=== PATIENT | female | born 1980 | race Caucasian/White ===

== ENCOUNTER 2022-04-09 11:56 | Emergency (ER) | payer SELFPAY ==
[~2022-04-09] VITALS: Ht 162.6 cm; Wt 109.0 kg
[2022-04-09 12:05] VITALS: BP 117/64
[2022-04-09] MEDS ORDERED: PROVENTIL HFA108 MCG IN (12:14)
[2022-04-09 12:31] VITALS: BP 121/58
[2022-04-09 13:08] LABS: HEMATOCRIT 30.9 % (37.0-47.0); IMMATURE GRANULOCYTES 0.2 % (0.0-5.0); MEAN CORPUSCULAR HGB 16.6 pG CALC (26.0-32.0); MEAN CORPUSCULAR HGB CONC 25.9 g/dL CAL (32.0-36.0); NEUT# 9.62 thou/uL (2.00-7.15); RED BLOOD COUNT 4.83 mill/uL (4.20-5.60); RED CELL DISTRI WIDTH 20.3 % (11.5-15.5)
[2022-04-09 13:19] LABS: ALBUMIN 3.7 g/dL (3.2-5.0); ALKALINE PHOSPHATASE 91 u/l (38-126); ANION GAP 12 (6-22 (CALC)); BILIRUBIN, TOTAL 0.3 mg/dL (0.0-1.4); BUN 15 mg/dL (7-17); BUN/CREATININE RATIO 19 (12-20 (CALC)); CARBON DIOXIDE 23 mmol/l (22-30); CHLORIDE 107 mmol/l (95-108); CREATININE 0.8 mg/dL (0.5-1.0); GFR FOR AFR.AMER. > 60 ML/MIN (>=60 (CALC)); GFR OTHER RACES > 60 ML/MIN (>=60 (CALC)); SGOT/AST 19 u/l (14-36); SODIUM 138 mmol/l (137-146); TOTAL PROTEIN 7.7 g/dL (6.3-8.2)
[2022-04-09 13:54] VITALS: BP 110/52
[2022-04-09 14:00] VITALS: BP 116/62
[2022-04-09] MEDS ORDERED: ULTRAM50 MG PO (15:34)
[2022-04-09] MEDS ORDERED: AMOX/K CLAV875 M1 PO (15:34)
[2022-04-09 16:01] VITALS: BP 97/38
== END 2022-04-09 16:15 | disposition home or self-care (01) | DRG 563 ==
LOC: ED 11:56
PROVIDERS: Emergency Medicine
DX: S93.402A Sprain of unspecified ligament of left ankle, initial encounter (principal); L03.116 Cellulitis of left lower limb; W01.0XXA Fall on same level from slipping, tripping and stumbling without subsequent striking against object, initial encounter; F17.210 Nicotine dependence, cigarettes, uncomplicated